=== PATIENT | female | born 1980 | race Caucasian/White ===

== ENCOUNTER → 2020-04-07 | Outpatient (CLI) | payer OTHER | LOC: LAB 14:31 | PROVIDERS: ATTEND Nurse Practitioner Family | DX: R82.90 Unspecified abnormal findings in urine (principal) | CPT/HCPCS: 87086; 87088; 87186 ==

== ENCOUNTER → 2020-04-20 | Outpatient (CLI) | payer OTHER ==
--- NOTE | 2020-04-20 20:26 | RADIOLOGY REPORT (SQ) ---
US LOWER EXTREMITY VEINS HISTORY: Leg pain and swelling. COMPARISON: None. TECHNIQUE: Grayscale, color Doppler, and spectral Doppler images of the left lower extremity were performed. FINDINGS: There is acute echogenic thrombus with noncompressibility and diminished color Doppler blood flow, consistent with acute thrombosis. The remaining common femoral, superficial femoral and popliteal veins are patent and compressible. Normal augmentation and color Doppler blood flow in the aforementioned veins. IMPRESSION: Acute thrombosis in the left gastrocnemius and peroneal veins in the calf.
== END ==
LOC: SP 16:41
PROVIDERS: ATTEND Family Medicine
DX: I82.452 Acute embolism and thrombosis of left peroneal vein (principal); M79.652 Pain in left thigh
CPT/HCPCS: 93971

== ENCOUNTER → 2020-05-16 | Outpatient (CLI) | payer OTHER ==
--- NOTE | 2020-05-16 14:25 | RADIOLOGY REPORT (SQ) ---
EXAM DESCRIPTION: VENOUS UNILATERAL LOWER IMAGES COMPLETED DATE/TIME: 05/16/2020 2:05 pm REASON FOR STUDY: RLE PAIN M79.604 PAIN IN RIGHT LEG COMPARISON: None. TECHNIQUE: Dynamic and static allen scale and color images acquired of the right leg venous system. S elected spectral images acquired with additional compression and augmentation maneuvers. The contrala teral common femoral vein and saphenofemoral junction were also imaged. Images stored on PACS. LIMITATIONS: None. FINDINGS: COMMON FEMORAL: Normal phasicity, compression and augmentation. No visualized echogenic ma terial on allen scale. No defects on color images. FEMORAL: Normal compression and augmentation. No visualized echogenic material on allen scale. No defe cts on color images. POPLITEAL: Normal compression, augmentation. No visualized echogenic material on allen scale. No defec ts on color images. CALF VESSELS: Normal compression, augmentation. No visualized echogenic material on allen scale. No de fects on color images. GSV and SSV: Normal compression, augmentation. No visualized echogenic material on allen scale. No def ects on color images. ANY DEEP VENOUS INSUFFICIENCY: Not evaluated. ANY EVIDENCE OF POPLITEAL CYST: No. OTHER: No other significant finding. CONTRALATERAL COMMON FEMORAL VEIN AND SAPHENOFEMORAL JUNCTION: Normal phasicity, compression and augmentation. No visualized echogenic material on allen scale. No de fects on color images. IMPRESSION: NO EVIDENCE OF DVT OR SVT IN THE RIGHT LEG. TECHNICAL DOCUMENTATION: JOB ID: [id number] 2010 [employer]- All Rights Reserved Reading location - IP/workstation name: [email or web address]
== END ==
LOC: SP 12:09
PROVIDERS: ATTEND Internal Medicine
DX: M79.604 Pain in right leg (principal)
CPT/HCPCS: 93971